=== PATIENT | male | born 1965 | race Asian ===

== ENCOUNTER → 2018-08-25 | Outpatient (CLI) | payer OTHER | LOC: EMCIMAGING 07:55 | PROVIDERS: ATTEND Family Medicine | DX: M65.251 Calcific tendinitis, right thigh (principal); M65.252 Calcific tendinitis, left thigh; M51.36 Other intervertebral disc degeneration, lumbar region; M48.061 Spinal stenosis, lumbar region without neurogenic claudication | CPT/HCPCS: 72148-PN; 72195-PN ==